=== PATIENT | male | born 1965 | race Caucasian/White ===

== ENCOUNTER → 2016-08-16 | Outpatient (CLI) | payer OTHER ==
[~2016-08-16] MED LIST: ALBU1AER9 INH; ATOR-54 PO; LISI-794 PO; MELA1TAB5 PO; PRLSR20 PO
[2016-08-16 11:24] LABS: ESTIMATED AVERAGE GLUCOSE 105 mg/dl; HA1C FLAG Normal (Normal)
[2016-08-16 11:32] LABS: ALT/SGPT 61 U/L (12-78); AST/SGOT 26 U/L (15-37); BLOOD UREA NITROGEN 21 mg/dl (7-18); BUN/CREATININE RATIO 17.9 (10-20); CALCIUM 8.7 mg/dl (8.5-10.1); CARBON DIOXIDE 27 mmol/L (21-32); CHLORIDE 107 mmol/L (98-107); CHOLESTEROL 199 mg/dl (0-200); GLUCOSE 114 mg/dl (70-99); POTASSIUM 4.8 mmol/L (3.5-5.1); SODIUM 143 mmol/L (136-145)
[2016-08-16 11:43] LABS: ALB/GLOB RATIO 1.2 (0.9-2); ALKALINE PHOSPHATASE 116 U/L (45-117); HDL CHOLESTEROL 50 mg/dl; LDL CHOLESTEROL CALCULATED 133 mg/dl; THYROID STIMULATING HORMONE 0.862 uIu/ml (0.300-4.500); TRIGLYCERIDES 80 mg/dl (0-150); VERY LOW DENSITY LIPOPROT CALC 16 mg/dl
== END | disposition home or self-care (01) ==
LOC: C.LABBC 07:41
PROVIDERS: ATTEND Internal Medicine Geriatric Medicine
DX: R73.9 Hyperglycemia, unspecified (principal); E78.5 Hyperlipidemia, unspecified; G47.00 Insomnia, unspecified

== ENCOUNTER → 2017-10-16 | Outpatient (CLI) | payer OTHER ==
--- NOTE | 2017-10-16 08:56 | DIAGNOSTIC IMAGING REPORT ---
CHEST 2 VIEWS ROUTINE CLINICAL HISTORY: 51 years-old Male presenting with R53.83 [id number] Dyspnea on exertion. TECHNIQUE: PA and lateral views of the chest were obtained. COMPARISON: 04/19/2015. FINDINGS: Cardiomediastinal silhouette normal. Lungs and pleural spaces clear. Degenerative changes of the thoracic spine. Upper abdomen normal. IMPRESSION: 1. No acute cardiopulmonary disease. Electronically signed by: Franco Caldera M.D. 10/16/2017 8:55 AM Dictated Date/Time: 10/16/2017 8:54 AM
[2017-10-16 11:42] LABS: BASO % 0.7 %; BASO ABS # 0.05 K/uL (0-0.2); EOS % 2.1 %; EOS ABS # 0.15 K/uL (0-0.5); HEMATOCRIT 44.7 % (42-52); HEMOGLOBIN 15.3 g/dL (14.0-18.0); IG# 0.02 K/uL (0.00-0.02); LYMPH % 30.7 %; LYMPH ABS # 2.16 K/uL (1.2-3.4); MEAN CELL VOLUME 95.5 fL (80-100); MEAN CORPUSCULAR HEMOGLOBIN 32.7 pg (25-34); MEAN CORPUSCULAR HGB CONC 34.2 g/dl (32-36); MEAN PLATELET VOLUME 10.5 fL (7.4-10.4); MONO % 10.5 %; MONO ABS # 0.74 K/uL (0.11-0.59); NEUT % 55.7 %; NEUT ABS # 3.91 K/uL (1.4-6.5); PLATELET COUNT 270 K/uL (130-400); RED CELL DISTRIBUTION WIDTH CV 12.3 % (11.5-14.5); RED CELL DISTRIBUTION WIDTH SD 42.8 fL (36.4-46.3); WHITE BLOOD COUNT 7.03 K/uL (4.8-10.8)
[2017-10-16 12:04] LABS: ALBUMIN 3.9 gm/dl (3.4-5.0); ALT/SGPT 57 U/L (12-78); AST/SGOT 29 U/L (15-37); BLOOD UREA NITROGEN 28 mg/dl (7-18); CALCIUM 8.2 mg/dl (8.5-10.1); CARBON DIOXIDE 26 mmol/L (21-32); CREATININE 1.28 mg/dl (0.60-1.40); GLUCOSE 111 mg/dl (70-99); POTASSIUM 4.5 mmol/L (3.5-5.1); SODIUM 135 mmol/L (136-145)
[2017-10-16 12:14] LABS: ALKALINE PHOSPHATASE 137 U/L (45-117); CHOLESTEROL 201 mg/dl (0-200); LDL CHOLESTEROL CALCULATED 102 mg/dl; TOTAL PROTEIN 7.2 gm/dl (6.4-8.2)
== END | disposition home or self-care (01) ==
LOC: C.RADBC 07:16
PROVIDERS: ATTEND Internal Medicine Geriatric Medicine
DX: E73.9 Lactose intolerance, unspecified (principal); E78.5 Hyperlipidemia, unspecified; R40.0 Somnolence; G43.109 Migraine with aura, not intractable, without status migrainosus; I10 Essential (primary) hypertension; R53.83 Other fatigue; R06.09 Other forms of dyspnea

== ENCOUNTER → 2017-10-19 | Outpatient (CLI) | payer OTHER ==
--- NOTE | 2017-10-19 12:07 | DIAGNOSTIC IMAGING REPORT ---
Biliary ultrasound CLINICAL HISTORY: R74.8 Elevated alkaline phosphatase level [id number] COMPARISON STUDY: 08/20/2009 FINDINGS: The liver is of slightly increased echogenicity, a finding suggesting hepatic steatosis. There are several hepatic cysts seen the largest of which is located within the right lobe measuring 19 mm. The gallbladder was sonographically normal. There is no ductal dilatation. The common bile duct measures 3 mm. There is no right-sided hydronephrosis. The pancreas appeared normal as visualized. IMPRESSION: 1. Ultrasonographically normal gallbladder. No evidence of ductal dilatation 2. Small hepatic cysts 3. Slight increase in hepatic echogenicity, a finding which may indicate hepatic steatosis Electronically signed by: Edin Jc M.D. 10/19/2017 12:06 PM Dictated Date/Time: 10/19/2017 12:04 PM
== END | disposition home or self-care (01) ==
LOC: C.ULTR 11:12
PROVIDERS: ATTEND Internal Medicine Geriatric Medicine
DX: R74.8 Abnormal levels of other serum enzymes (principal)